=== PATIENT | male | born 1960 | race Caucasian/White ===

== ENCOUNTER → 2017-12-29 | Outpatient (CLI) | payer BC, OTHER ==
[~2017-12-29] MED LIST: AMARYL2 MG PO; ASPIRIN EC81 M1 PO; CARDURA2 MG PO; CINNAMON BARK1 GM PO; COREG6.25 MG PO; EFFIENT10 MG; FISH OIL 1,0001 EAC8 PO; GLUCOPHAGE1000 MG PO; LIPITOR20 MG PO; NIACIN 500 MG500 M1 PO; NITROSTAT0.3 MG SUBLING; RANEXA500 MG PO; TOPROL XL25 MG PO; UNICOMPLEX M TA1 TA1 PO; ZESTORETIC 20-1 EAC3 PO
== END ==
LOC: RAD 10:26
DX: L40.0 Psoriasis vulgaris (principal); Z79.899 Other long term (current) drug therapy

== ENCOUNTER → 2019-01-04 | Outpatient (CLI) | payer BC, OTHER | LOC: RAD 15:13 | DX: I70.0 Atherosclerosis of aorta (principal); L40.0 Psoriasis vulgaris; Z79.811 Long term (current) use of aromatase inhibitors ==

== ENCOUNTER → 2019-11-05 | Outpatient (CLI) | payer BC, OTHER ==
[2019-11-05 12:10] LABS: HEMATOCRIT 43.6 % (42.0-52.0); MCHC 34.4 g/dL (28.0-37.0); MCV 98.7 fL (80.0-100.0); RBC 4.42 mil/uL (4.50-6.00); RDW 13.1 % (10.5-14.5); WBC 5.4 thou/uL (4.0-11.0)
[2019-11-05 12:23] LABS: ALBUMIN 4.2 g/dL (3.4-5.0); CALCIUM 8.9 mg/dL (8.5-10.1); CREATININE 1.1 mg/dL (0.7-1.3); POTASSIUM 4.1 mmol/L (3.5-5.1); TOTAL BILIRUBIN 0.6 mg/dL (<0.1-1.0); TOTAL PROTEIN 7.8 g/dL (6.4-8.2)
== END ==
LOC: RAD 11:14
PROVIDERS: Physician Assistant
DX: L40.0 Psoriasis vulgaris (principal); R05 Cough; Z79.899 Other long term (current) drug therapy